=== PATIENT | male | born 2000 | race Caucasian/White ===

== ENCOUNTER 2024-04-01 11:23 | Emergency (ER) | payer BC, SELFPAY ==
[2024-04-01 11:28] VITALS: BP 130/75; PULSE 76; RESP 18; TEMP 36.9; O2SAT 99; BMI 22.4
--- NOTE | 2024-04-01 12:21 | ED.WOUNDLAC ---
HPI - Wound/Laceration General Chief Complaint: Laceration/Wound Stated Complaint: cut tip of finger off Time Seen by Provider: 04/01/24 12:06 History of Present Illness HPI narrative: This 23-year-old male comes in with lacerations to the distal portion of his left middle and ring fingers. He was using a sharp knife to cut some landscaping material. He cut into the tips of his fingers of his left hand. He has a 2 cm laceration on the distal portion of the left middle finger and another 2 cm laceration along the side of the nail of the left ring finger. His tetanus status is not up-to-date. His last tetanus was 21 years ago. His mother states that they refused vaccinations since then. Related Data Home Medications ?Medication ?Instructions ?Recorded ?Confirmed insulin aspart U-100 100 unit/mL 1 sliding scale dose subcut 04/01/24 04/01/24 subcutaneous solution (Novolog USEASDIRECTD U-100 Insulin aspart) Allergies Allergy/AdvReac Type Severity Reaction Status Date / Time No Known Drug Allergies Allergy Verified 04/01/24 11:33 Review of Systems Status of ROS: Reports: 10 or more systems reviewed and unremarkable except as noted in History and below Narrative: Constitutional: No fevers, no weight gain or loss. Eyes: No discharge. No vision changes. HENT: No congestion, no sore throat, no ear pain. Cardiovascular: No chest pain, no palpitations. Respiratory: No shortness of breath, no wheezes, no cough. Gastrointestinal: No abdominal pain, no vomiting, no diarrhea. Genitourinary: No dysuria, no hematuria. Musculoskeletal: Normal range of motion. Skin: No rashes, no pruritis. Neurological: No dizziness, weakness, sensory change, speech change. Endo/Heme/Allergies: No bruising or bleeding. No polydipsia. Pysch: no suicidality, no anxiety, no insomnia. All other systems reviewed and are negative. PFSH PFSH Social History Smoking Status: Unknown if ever smoked Do you use any of these nicotine containing products: None Second hand tobacco smoke exposure: No How often do you have a drink containing alcohol: never AUDIT-C Alcohol total score: 0 Non-prescribed substance use: denies use service: No Exam Narrative: Exam Narrative: Constitutional: Well-developed, well-nourished, no acute distress. HEENT: Normocephalic, atraumatic. Neck: Normal range of motion. Nontender. Supple. Heart: Regular. No murmurs. Normal rate. Intact distal pulses. Lungs: Clear to auscultation. No chest discomfort. No wheezes, rhonchi, or rales. Abdomen: Normal bowel sounds. Nontender. No rebound tenderness. Genitalia: Deferred. Back: No midline tenderness. Normal range of motion. Extremities: Normal range of motion. 2 cm laceration at the distal portion of the left middle finger and another 2 cm laceration on the distal portion of the left ring finger. The wound edges are nicely approximated and there is no active bleeding. Range of motion of the the injured fingers is intact. There is no sign of nerve deficit. Skin: Intact. No rash. Warm. No erythema or pallor. Neurologic: No altered sensation. No weakness. Alert and oriented. Psychiatric: No suicidality. No anxiety or depression. No insomnia. Nursing notes and vitals signs are reviewed. Const: Vital Signs, click to edit/add: Vital Signs - 24 hr 04/01/24 11:28 Temperature 98.4 F Pulse Rate [Pulse Oximeter] 76 Respiratory Rate 18 Blood Pressure [Ri t Upper Arm] 130/75 Pulse Oximetry 99 Oxygen Delivery Me thod Room Air Course Vital Signs Vital signs: Initial Vital Signs Temperature 98.4 F 04/01/24 11:28 Temperature Source Temporal Artery Scan 04/01/24 11:28 Pulse Rate 76 04/01/24 11:28 Pulse Rhythm Regular 04/01/24 11:28 Pulse Strength 3+ Normal 04/01/24 11:28 Respiratory Rate 18 04/01/24 11:28 Blood Pressure 130/75 04/01/24 11:28 Blood Pressure Mean 93 04/01/24 11:28 Blood Pressure Position Sitting 04/01/24 11:28 Pulse Oximetry 99 04/01/24 11:28 Oxygen Delivery Method Room Air 04/01/24 11:28 Vital Signs Temperature 98.4 F 04/01/24 11:28 Pulse Rate 76 04/01/24 11:28 Respiratory Rate 18 04/01/24 11:28 Blood Pressure 130/75 04/01/24 11:28 Pulse Oximetry 99 04/01/24 11:28 Oxygen Delivery Method Room Air 04/01/24 11:28 Temperature 98.4 F 04/01/24 11:28 Pulse Rate 76 04/01/24 11:28 Respiratory Rate 18 04/01/24 11:28 Blood Pressure 130/75 04/01/24 11:28 Pulse Oximetry 99 04/01/24 11:28 Oxygen Delivery Method Room Air 04/01/24 11:28 Medications Administered Medications: Discontinued Medications Generic Name Dose Route Start Last Admin Trade Name Cecilia PRN Reason Stop Dose Admin Acetaminophen 1,000 mg 04/01/24 12:18 04/01/24 12:24 Acetaminophen 500 Mg Tablet PO 04/01/24 12:19 1,000 mg ONCE ONE Administration Ibuprofen 600 mg 04/01/24 12:18 04/01/24 12:25 Ibuprofen 200 Mg Tablet PO 04/01/24 12:19 600 mg ONCE ONE Administration MDM - Wound/Laceration MDM Narrative Medical decision making narrative: This patient comes in with lacerations to his left ring and middle finger as described above. The wound was cleansed using normal saline and explored after cleansing it. The wound edges are nicely approximated. The patient prefers Dermabond repair so this was applied with excellent results. He is refusing a tetanus vaccination. Instructions regarding wound care were given. He received Tylenol and ibuprofen for pain relief. Discharge Plan Discharge Clinical Impression: Laceration Patient Disposition: Home, Self-Care Condition: Improved Additional Instructions: Keep wound clean and dry. Keep bandages in place for 1-2 days then replace as needed. Increase activity as tolerated. Follow up with MD or return if worsening. Prescriptions: No Action insulin aspart U-100 [Novolog U-100 Insulin aspart] 100 unit/mL solution 1 sliding scale dose subcut USEASDIRECTD Stand Alone Forms: [facility] Info Instructions
[2024-04-01] MEDS: ACETAMINOPHEN 500 MG TABLET 1000 MG PO (12:24)
[2024-04-01] MEDS: IBUPROFEN 200 MG TABLET 600 MG PO (12:25)
== END 2024-04-01 13:17 | disposition home or self-care (01) ==
PROVIDERS: Emergency Provider Emergency Medicine Emergency Medical Services
DX: S61.213A Laceration without foreign body of left middle finger without damage to nail, initial encounter (principal); S61.215A Laceration without foreign body of left ring finger without damage to nail, initial encounter; W26.0XXA Contact with knife, initial encounter
CPT/HCPCS: 12002; 99282; 99284; A9270